=== PATIENT | male | born 1960 | race Caucasian/White ===

== ENCOUNTER → 2019-09-23 15:42 | Outpatient (REF) | payer OTHER, SELFPAY | LOC: ANHLAB 15:42 | PROVIDERS: Visit Provider Nurse Practitioner | DX: R22.9 Localized swelling, mass and lump, unspecified (principal) | CPT/HCPCS: 88304 ==

== ENCOUNTER → 2020-12-01 08:10 | Outpatient (CLI) | payer OTHER, SELFPAY ==
--- NOTE | ~2020-12-01 | XR_ITS ---
XR knee LT 3V DATE: 12/01/2020 08:24 INDICATION: Left knee injury, pain TECHNIQUE: [place], AP and lateral views COMPARISON: 10/17/2013 left knee 04/22/2018 left tibia-fibula FINDINGS: No fracture or dislocation or joint effusion. No periosteal reaction or bone destruction. N o radiopaque intra-articular loose body or chondrocalcinosis. Joint spaces are well preserved. IMPRESSION: Negative Reviewed, dictated and finalized at location A. IMPRESSION: Negative
== END ==
PROVIDERS: PCP Physician Assistant; Visit Provider Physician Assistant
DX: S89.92XA Unspecified injury of left lower leg, initial encounter (principal)
CPT/HCPCS: 73562

== ENCOUNTER → 2020-12-10 09:51 | Outpatient (CLI) | payer OTHER, SELFPAY ==
--- NOTE | ~2020-12-10 | MR_ITS ---
EXAMINATION: MR knee LT wo con DATE: 12/10/2020 10:30 INDICATION: Left knee injury. TECHNIQUE: Magnetic resonance imaging (MRI) of the left knee was performed without intravenous contra st. Sequences included axial PD-weighted FS FSE, coronal PD-weighted FSE and PD-weighted FS FSE, sagi ttal PD-weighted FSE, and sagittal T2-weighted FS FSE. COMPARISON: Left knee radiographs 12/01/2020 FINDINGS: Medial compartment: Medial meniscus is normal. There is cartilage surface irregularity of femoral condyle and tibial cond yle. Lateral compartment: Lateral meniscus is normal. There is cartilage surface irregularity of tibial condyle and femoral con dyle. Patellofemoral compartment: There is deep partial thickness cartilage loss of patellar medial facet and median ridge. There is ca rtilage surface irregularity of trochlea. Ligaments and tendons: The anterior and posterior cruciate ligaments are normal. Medial collateral ligament and lateral duke ateral ligament complex are intact. There is mild patellar tendinopathy. Fluid: There is no knee joint effusion. There is a small ruptured Gusman's cyst. There is mild superficial in frapatellar bursitis. IMPRESSION: 1. Moderate chondrosis of patellofemoral compartment and mild chondrosis of medial and lateral compar tments. 2. Small ruptured Gusman's cyst. Reviewed, dictated and finalized at location A. IMPRESSION: 1. Moderate chondrosis of patellofemoral compartment and mild chondrosis of med ial and lateral compartments. 2. Small ruptured Gusman's cyst.
== END ==
PROVIDERS: PCP Physician Assistant; Visit Provider Physician Assistant
DX: S89.92XA Unspecified injury of left lower leg, initial encounter (principal); M22.2X2 Patellofemoral disorders, left knee; M66.0 Rupture of popliteal cyst
CPT/HCPCS: 73721

== ENCOUNTER 2021-11-30 08:26 | Outpatient (CLI) | payer OTHER, SELFPAY ==
--- NOTE | 2021-11-30 08:45 | ECG_ITS ---
Measurements Intervals [place] Rate: 60 P: 41 WV: 165 QRS: 7 QRSD: 93 T: 4 QT: 407 QTc: 409 Interpretive Statements SINUS RHYTHM NO PREVIOUS ECG AVAILABLE FOR COMPARISON Electronically Signed On 11-30-2021 14:22:28 CDT by Minnie Patten M.D.
== END 2021-11-30 08:27 | disposition home or self-care (01) ==
LOC: ANHLAB 08:29 → ANHCARD 08:33
PROVIDERS: PCP Physician Assistant; Visit Provider Orthopaedic Surgery
DX: Z01.810 Encounter for preprocedural cardiovascular examination (principal); G56.01 Carpal tunnel syndrome, right upper limb
CPT/HCPCS: 93005

== ENCOUNTER 2022-08-07 00:27 | Day surgery (SDC) | payer OTHER, SELFPAY ==
[2022-07-28 12:38] VITALS: BMI 34.4
[2022-08-07 06:29] VITALS: BP 123/86; PULSE 79; RESP 18; TEMP 36.1; O2SAT 96
[2022-08-07] MEDS: LACTATED RINGERS 1,000 ML 150 ML IV CONT (06:38)
--- NOTE | 2022-08-07 07:28 | WPDANESEPPF ---
Anes - Initial Pre Proc Eval Procedure: Operation Date: 08/07/22 07:30 Proposed Procedures p Screening Colonoscopy - Ghulam Nagel MD Date/Time: 08/07/22 07:28 Surgeon: Ghulam Nagel MD Pre Op Diagnosis: neoplasm screening, hx colon polyps Patient Data Age: 62 Gender: M Height: 1.78 m Weight: 106 kg Last Vital Signs Temp 97 F L 08/07/22 06:29 Pulse 79 08/07/22 06:29 Resp 18 08/07/22 06:29 BP 123/86 08/07/22 06:29 Pulse Ox 96 08/07/22 06:29 O2 Del Method Room Air 08/07/22 06:29 Allergies Allergy/AdvReac Type Severity Reaction Status Date / Time No Known Allergies Allergy Verified 08/07/22 06:28 Home Medications Medication Instructions Recorded Confirmed Type peg 3350-electrolytes 236 240 ml PO Q10M #4,000 mL 05/03/22 Rx gram-22.74 gram-6.74 gram-5.86 [facility] omega-3 fatty acids-vitamin E 1 cap PO DAILY 07/28/22 07/28/22 History 1,000 mg capsule Patient hx anesthesia problems: none Family hx anesthesia problems: none Results Review: All pre-operative results and documents have been reviewed as part of the pre-operative evaluation. [facility] Social History Social History (Reviewed 07/22/19 @ 14:38 by Carina Mixon [facility]) Smoking status: Never smoker Substance use type: does not use Living arrangements: with family Spiritual care concerns: No Anes - Eval Final PreProcedure Day of Procedure 08/07/22 07:28 Patient weight: obese Heart: regular rate and rhythm Lungs: clear to auscultation Airway: Mallampati scale class II Neurological: alert and oriented Last oral intake: >/= 8 hours ASA classification: II Emergent: no Anesthetic plan: proceed Anesthesia type and monitoring: general GIVS and standard monitoring Results Review: All pre-operative results and documents have been reviewed as part of the pre-operative evaluation. Informed Consent: The patient's anesthetic plan and its attendant risks and benefits were discussed with the patient/family/POA. Questions were solicited and answers provided to the satisfaction of the patient/family/POA.
--- NOTE | 2022-08-07 07:43 | P.HP_ITS ---
History of Present Illness History of Present Illness Consent: Risks, benefits, and alternatives have been discussed and questions answered. Patient agrees to proceed with procedure. Chief complaint: neoplasm screening, hx colon polyps Narrative: Buster Linares is a 62 year old male Presents for screening colonoscopy. Patient's current weight appetite and bowel movements are normal. Patient has had a colonoscopy 5 years ago. He had previously found to have adenomatous colon polyps. Patient presents today for screening exam. Patient's current weight appetite and bowel movements are normal. Patient denies abdominal pain. He has had no bleeding. Family history noncontributory. Review of Systems Review of Systems: Review of systems noncontributory. [facility] Social History Social History Smoking status: Never smoker Substance use type: does not use Living arrangements: with family Spiritual care concerns: No Meds Home Medications and Allergies Home Medications Medication Instructions Recorded Confirmed Type peg 3350-electrolytes 236 240 ml PO Q10M #4,000 mL 05/03/22 Rx gram-22.74 gram-6.74 gram-5.86 gram solution ([facility]) omega-3 fatty acids-vitamin E 1 cap PO DAILY 07/28/22 07/28/22 History 1,000 mg capsule Allergies Allergy/AdvReac Type Severity Reaction Status Date / Time No Known Allergies Allergy Verified 08/07/22 06:28 Vital Signs Vital Signs - 24 hr 08/07/22 06:29 Temperature 97 F L Pulse Rate 79 Respiratory Rate 18 Blood Pressure 123/86 Pulse Oximetry 96 Oxygen Delivery Room Air Exam Narrative: Physical exam reveals patient be alert. Vital signs stable. HEENT exam is unremarkable. Patient is anicteric. Lungs are clear to auscultation and percussion. Heart is without murmur or extra sounds. Abdomen bowel sounds present soft nontender with no organomegaly. Digital external rectal exam is normal. Assessment and Plan Assessment and plan (1) History of colon polyps: Code(s): Z86.010 - Personal history of colonic polyps Status: Acute Assessment and Plan: Patient has a distant history of colon polyps. His current weight appetite bowel movements are normal. Plan for screening colonoscopy now. Consider this a 5 year intervals in the future.
[2022-08-07 07:48] VITALS: BP 101/66; PULSE 70; RESP 18; O2SAT 94
[2022-08-07 07:58] VITALS: BP 113/70; PULSE 66; RESP 18; O2SAT 96
[2022-08-07 08:08] VITALS: BP 120/82; PULSE 68; RESP 18; O2SAT 95
== END 2022-08-07 08:17 | disposition home or self-care (01) ==
PROVIDERS: PCP Physician Assistant; Visit Provider Internal Medicine Gastroenterology
PROC: 0DJD8ZZ Inspection of Lower Intestinal Tract, Via Natural or Artificial Opening Endoscopic (ICD-10-PCS; CPT 45378; principal; 2022-08-07 07:30)
DX: Z12.11 Encounter for screening for malignant neoplasm of colon (principal); K64.8 Other hemorrhoids; Z86.010 Personal history of colon polyps; E66.9 Obesity, unspecified; Z68.33 Body mass index [BMI] 33.0-33.9, adult
CPT/HCPCS: 45378; J2704; J7120

== ENCOUNTER → 2022-11-18 07:28 | Outpatient (CLI) | payer OTHER, SELFPAY ==
--- NOTE | ~2022-11-18 | US_ITS ---
US scrotum doppler DATE: 11/18/2022 07:54 INDICATION: : Right groin pain TECHNIQUE: Real-time and color flow imaging and Doppler analysis of the scrotal contents COMPARISON: The right testicle measures 5.4 x 2.7 x 3.3 mm. FINDINGS: The left testicle measures 4.5 x 2.8 x 3.5 mm. There is homogeneous symmetric echotexture o f the testicles. No testicular mass lesion or torsion is detected. Mild left hydrocele. 6 mm cyst of the head of the right epididymis. Left varicocele measuring up to 3.2 mm. IMPRESSION: Small left varicocele Small hydrocele and small left hydrocele No testicular mass lesion or torsion Reviewed, dictated and finalized at Location A. Reviewed, dictated and finalized at location A.
== END ==
PROVIDERS: PCP Physician Assistant; Visit Provider Physician Assistant
DX: N50.819 Testicular pain, unspecified (principal); N43.3 Hydrocele, unspecified; I86.1 Scrotal varices
CPT/HCPCS: 76870; 93976

== ENCOUNTER 2023-05-05 07:33 | Outpatient (CLI) | payer OTHER, SELFPAY ==
--- NOTE | 2023-05-05 | ECG_ITS ---
Measurements Intervals [place] Rate: 60 P: 52 ND: 181 QRS: 2 QRSD: 90 T: -3 QT: 418 QTc: 421 Interpretive Statements SINUS RHYTHM BORDERLINE T WAVE ABNORMALITY- INFERIOR LEADS BASELINE WANDER- I, II, AVR, AVF BORDERLINE ECG COMPARED TO ECG 11/30/2021 08:54:52 NO SIGNIFICANT CHANGES Electronically Signed On 05-05-2023 16:29:45 CDT by Yomi Bauer D.O.
[2023-05-05 08:04] LABS: Anion Gap 6 mmol/L (8-16); Blood Urea Nitrogen 20 mg/dL (9-20); Calcium 8.6 mg/dL (8.4-10.2); Carbon Dioxide 27 mmol/L (22-30); Chloride 106 mmol/L (98-107); Estimated Glomerular Filt Rate > 60; Glucose 124 mg/dL (65-110); Potassium 4.3 mmol/L (3.4-5.0); Sodium 139 mmol/L (137-145)
== END 2023-05-05 07:34 | disposition home or self-care (01) ==
LOC: ANHLAB 07:35
PROVIDERS: PCP Physician Assistant; Visit Provider Podiatrist Foot & Ankle Surgery
DX: Z13.0 Encounter for screening for diseases of the blood and blood-forming organs and certain disorders involving the immune mechanism (principal); Z01.810 Encounter for preprocedural cardiovascular examination
CPT/HCPCS: 36415; 80048; 93005

== ENCOUNTER → 2023-09-01 11:27 | Outpatient (CLI) | payer OTHER, SELFPAY ==
--- NOTE | ~2023-09-01 | MR_ITS ---
MRI of the left knee Clinical history: Pain Technique: Coronal proton density and proton density-weighted images, sagittal proton-density and T2 fat-sat images, and axial proton-density fat-saturated images were acquired. Findings: Anterior and posterior cruciate ligaments are intact. Medial collateral ligament and the la teral collateral ligament complex are intact. Popliteus tendon is intact. No medial or lateral meniscal tear identified. There is intrasubstance degenerative signal within the posterior horn of the medial meniscus. Articular cartilage is well preserved throughout the knee, aside from mild chondromalacia patella. Placido ne marrow signals are unremarkable. Extensor mechanism is intact. No significant joint effusion. There is minimal Gusman's cyst. Impression: Mild chondromalacia patella. Minimal Gusman's cyst. Reviewed, dictated and finalized at location . [employer]IS[employer] PU[employer]ING Impression: Mild chondromalacia patella. Minimal Gusman's cyst.
== END ==
PROVIDERS: PCP Physician Assistant Surgical; Visit Provider Physician Assistant Surgical
DX: M25.562 Pain in left knee (principal)
CPT/HCPCS: 73721

== ENCOUNTER 2023-11-01 15:54 | Outpatient (CLI) | payer OTHER, SELFPAY ==
--- NOTE | 2023-11-01 | ECG_ITS ---
Measurements Intervals [place] Rate: 68 P: 17 NE: 166 QRS: 2 QRSD: 100 T: 5 QT: 398 QTc: 424 Interpretive Statements SINUS RHYTHM BORDERLINE T WAVE ABNORMALITY- INFERIOR LEADS BORDERLINE ECG COMPARED TO ECG 05/05/2023 07:56:09 NO SIGNIFICANT CHANGES Electronically Signed On 11-01-2023 18:27:46 [employer] by Yomi Bauer D.O.
[2023-11-01 16:59] LABS: Anion Gap 5 mmol/L (8-16); Blood Urea Nitrogen 24 mg/dL (9-20); Calcium 9.1 mg/dL (8.4-10.2); Carbon Dioxide 25 mmol/L (22-30); Chloride 107 mmol/L (98-107); Estimated Glomerular Filt Rate > 60; Glucose 91 mg/dL (65-110); Potassium 3.9 mmol/L (3.4-5.0); Sodium 137 mmol/L (137-145)
== END 2023-11-01 15:55 | disposition home or self-care (01) ==
PROVIDERS: PCP Physician Assistant Surgical
DX: Z01.818 Encounter for other preprocedural examination (principal); I10 Essential (primary) hypertension
CPT/HCPCS: 36415; 80048; 93005

== ENCOUNTER 2023-11-15 07:21 | Outpatient (CLI) | payer OTHER, SELFPAY ==
--- NOTE | ~2023-11-15 | XR_ITS ---
XR chest 2V DATE: 11/15/2023 08:04 INDICATION: Precordial chest pain TECHNIQUE: Standing PA and lateral views COMPARISON: None FINDINGS: Normal heart size. No hilar or mediastinal enlargement. No pulmonary infiltrate or consolid ation, pleural effusion or pulmonary vascular congestion or pneumothorax. Included skeletal structure s are unremarkable. IMPRESSION: No active cardiopulmonary disease Reviewed, dictated and finalized at location L.
== END 2023-11-15 07:22 ==
LOC: MICIMG 07:22
PROVIDERS: PCP Physician Assistant; Visit Provider Physician Assistant
DX: R07.2 Precordial pain (principal); K21.9 Gastro-esophageal reflux disease without esophagitis
CPT/HCPCS: 71046

== ENCOUNTER 2024-01-07 00:52 | Day surgery (SDC) | payer OTHER, SELFPAY ==
[2024-01-02 09:21] VITALS: BMI 34.4
[2024-01-07 11:49] VITALS: BP 118/101; PULSE 67; RESP 18; TEMP 36.5; O2SAT 99
--- NOTE | 2024-01-07 11:49 | P.PNAN_ITS ---
Anes - Initial Pre Proc Eval Procedure: Operation Date: 01/07/24 13:00 Proposed Procedures p Esophagogastroduodenoscopy - Demarcus Rodriguez MD Date/Time: 01/07/24 11:49 Surgeon: Demarcus Rodriguez MD Pre Op Diagnosis: GERD w/o esophagitis Patient Data Age: 63 Gender: M Height: 1.78 m Weight: 102.7 kg Allergies Allergy/AdvReac Type Severity Reaction Status Date / Time No Known Allergies Allergy Verified 01/07/24 11:48 Home Medications Medication Instructions Recorded Confirmed Type omega-3 fatty acids-vitamin E 1 cap PO DAILY 07/28/22 01/02/24 History 1,000 mg capsule Patient hx anesthesia problems: none Family hx anesthesia problems: none Results Review: All pre-operative results and documents have been reviewed as part of the pre- operative evaluation. [facility] Social History Social History Smoking status: Never smoker Alcohol intake: current Drinks per week: 2 Substance use type: does not use Living arrangements: other Additional living arrangements comments: with sp Spiritual care concerns: No Anes - Eval Final PreProcedure Day of Procedure 01/07/24 11:49 Patient weight: normal Heart: regular rate and rhythm Lungs: clear to auscultation Airway: Mallampati scale class III Neurological: alert and oriented Last oral intake: >/= 8 hours ASA classification: II Emergent: no Anesthetic plan: proceed Anesthesia type and monitoring: general and standard monitoring Results Review: All pre-operative results and documents have been reviewed as part of the pre- operative evaluation. Informed Consent: The patient's anesthetic plan and its attendant risks and benefits were discussed with the patient/family/POA. Questions were solicited and answers provided to the satisfaction of the patient/family/POA.
[2024-01-07] MEDS: LACTATED RINGERS 1,000 ML 150 ML IV CONT (11:59)
--- NOTE | 2024-01-07 12:08 | PM.HPGS ---
History of Present Illness History of Present Illness Consent: Risks, benefits, and alternatives have been discussed and questions answered. Patient agrees to proceed with procedure. Chief complaint: GERD w/o esophagitis Narrative: Buster Linares is a 63 year old male with reflux and mild upper chest discomfort Review of Systems Review of Systems: All systems reviewed & are unremarkable except as noted in HPI and below PMFSH Past Medical History Medical History (Updated 01/07/24 @ 12:09 by Demarcus Rodriguez MD) GERD (gastroesophageal reflux disease) Social History Social History Smoking status: Never smoker Alcohol intake: current Drinks per week: 2 Substance use type: does not use Living arrangements: other Additional living arrangements comments: with sp Spiritual care concerns: No Meds Home Medications and Allergies Home Medications Medication Instructions Recorded Confirmed Type omega-3 fatty acids-vitamin E 1 cap PO DAILY 07/28/22 01/02/24 History 1,000 mg capsule Allergies Allergy/AdvReac Type Severity Reaction Status Date / Time No Known Allergies Allergy Verified 01/07/24 11:48 Vital Signs Vital Signs - 24 hr 01/07/24 11:49 Temperature 97.7 F Pulse Rate 67 Respiratory Rate 18 Blood Pressure 118/101 H Pulse Oximetry 99 Oxygen Delivery Room Air Exam Const: General: comfortable and no acute distress HENMT: Face/Nose/Sinus: Normal nares present Eyes: General: appearance normal, both eyes and all related structures Neck: Neck: no JVD Resp: Auscultation: clear to auscultation bilaterally Cardio: Rate: regular rate Rhythm: regular rhythm GI: Inspection: non-distended GI Palp: Yes Soft to palpation Skin: General skin exam: normal color Neuro: General: gait normal Speech: normal speech Extrem: General: normal to inspection Psych: Mental Status: mental status grossly normal Assessment and Plan Assessment and plan (1) GERD (gastroesophageal reflux disease): Code(s): K21.9 - Gastro-esophageal reflux disease without esophagitis Status: Acute Assessment and Plan: egd with bx
[2024-01-07 12:12] VITALS: BP 106/63; PULSE 68; RESP 17; O2SAT 93
[2024-01-07 12:22] VITALS: BP 106/66; PULSE 65; RESP 20; O2SAT 94
[2024-01-07 12:32] VITALS: BP 109/72; PULSE 64; RESP 18; O2SAT 95
== END 2024-01-07 12:40 | disposition home or self-care (01) ==
PROVIDERS: PCP Physician Assistant; Visit Provider Internal Medicine Gastroenterology
PROC: 0DJ08ZZ Inspection of Upper Intestinal Tract, Via Natural or Artificial Opening Endoscopic (ICD-10-PCS; CPT 43235; principal; 2024-01-07 13:00)
DX: K29.70 Gastritis, unspecified, without bleeding (principal); K21.9 Gastro-esophageal reflux disease without esophagitis
CPT/HCPCS: 43239; 88305; J2704; J7120

== ENCOUNTER 2024-05-05 09:50 | Outpatient (CLI) | payer OTHER, SELFPAY ==
--- NOTE | 2024-05-05 | EST_ITS ---
Patient Info Name: Buster Linares Age: 64 years : 1960 Gender: Male Ht: 70 in Wt: 243 lbs BSA: 2.37 m2 HR: 58 bpm BP: 115 / 78 mmHg Exam Date: 05/05/2024 10:47 AM Exam Location: Echo Lab Patient Status: Outpatient Admit Date: 05/05/2024 Staff Ordering Physician: JessicaAlexsandra PA-C Attending Provider: JessicaAlexsandra PA-C Exercise Technologist: Sumi Lee RDCS Nurse: Karen Hernandez APN Exam Type: CA stress arianna w NM Study Info A regadenoson stress test was performed. Summary 1. Sinus bradycardia. 2. No ST or T-wave abnormalities noted following Lexiscan injection. 3. Clinically and electrocardiographically uneventful Lexiscan stress test. 4. Myocardial perfusion imaging study to be dictated by Radiology. Protocol: Lexiscan Stress ECG Details Stage: REST Duration (min): 3 min : 47 sec HR (bpm): 58 SBP (mmHg): 115 DBP (mmHg): 78 Stage: REST Duration (min): 8 min : 14 sec HR (bpm): 58 SBP (mmHg): 115 DBP (mmHg): 78 Stage: STAGE 1 Duration (min): 1 min : 0 sec HR (bpm): 77 SBP (mmHg): 126 DBP (mmHg): 71 Stage: RECOVERY Duration (min): 1 min : 0 sec HR (bpm): 84 SBP (mmHg): 126 DBP (mmHg): 71 Stage: RECOVERY Duration (min): 2 min : 0 sec HR (bpm): 79 SBP (mmHg): 126 DBP (mmHg): 71 Stage: RECOVERY Duration (min): 3 min : 0 sec HR (bpm): 77 SBP (mmHg): 115 DBP (mmHg): 71 Stage: RECOVERY Duration (min): 4 min : 0 sec HR (bpm): 78 SBP (mmHg): 115 DBP (mmHg): 71 Stage: RECOVERY Duration (min): 4 min : 9 sec HR (bpm): 75 SBP (mmHg): 115 DBP (mmHg): 71 Rest HR: 58 bpm Peak HR: 85 bpm Rest Sys BP: 115 mmHg Peak Sys BP: 126 mmHg Max Pred HR: 155 bpm % Max Pred HR: 55 % Target HR: 132 bpm Max RPP: 10,710 bpm*mmHg Termination Reason: Completed protocol Total Time: 1 min : 0 sec Rest Huynh BP: 78 mmHg Peak [place] BP: 71 mmHg Total Dose: 0.4 mg Resting ECG Sinus bradycardia. Stress ECG No ST or T-wave abnormalities noted following Lexiscan injection. Report Signatures
--- NOTE | ~2024-05-05 | NM_ITS ---
EXAMINATION: NM arianna stress w perfusion DATE: 05/05/2024 11:33 INDICATION: Retrosternal chest pain TECHNIQUE: Rest images were obtained following intravenous administration of 9.8 mCi Tc99m tetrofosmi n (Myoview). The patient was infused intravenously with Lexiscan (Regadenoson). Then, 32 mCi Tc99m te trofosmin (Myoview) was administered intravenously, and stress images were obtained. Data was reconst ructed into short axis and horizontal and vertical long axis SPECT images. Gated SPECT images were al so obtained. COMPARISON: None. FINDINGS: There is no definite reversible or fixed perfusion abnormality to suggest ischemia or infar ction. There is normal left ventricular chamber size, wall motion and ejection fraction. Left ventr icular ejection fraction measures 69%. IMPRESSION: 1. Normal myocardial perfusion at rest and during stress. 2. Left ventricular ejection fraction measuring 69%. Reviewed, dictated and finalized at location B.
== END 2024-05-05 09:51 | disposition home or self-care (01) ==
PROVIDERS: PCP Physician Assistant; Visit Provider Physician Assistant
DX: R00.1 Bradycardia, unspecified (principal)
CPT/HCPCS: 78452; 93017; A9502; J2785